=== PATIENT | male | born 1960 | race Caucasian/White ===

== ENCOUNTER 2019-12-11 11:10 | Emergency (ER) | payer OTHER ==
[~2019-12-11] VITALS: Ht 170.2 cm; Wt 78.7 kg
[~2019-12-11 11:10] MED LIST: AMLO-315 PO; ASPI-515 PO; ASPI81TA45 PO; ESOM20CA PO; GABA-826 PO; HYDROCHLOROTH12.5 MG PO; OMEP10CA5 PO
[2019-12-11 11:16] VITALS: BP 146/83
[2019-12-11] MEDS ORDERED: LIDOCAINE-MPF 1%, 5ML ONE (11:22)
[2019-12-11] MEDS ORDERED: LIDOCAINE-MPF 1%, 5ML INFIL ONE (11:30)
[2019-12-11] MEDS ORDERED: NEOSPORIN OINT. PKT 1 PACKET ONE (11:52)
[2019-12-11] MEDS ORDERED: DIPH,PERTUSS(ACELL),TET VAC/PF 0.5 ML IM-VACC ONE ×2 (11:59→12:30)
[2019-12-11] MEDS ORDERED: DIPH,PERTUSS(ACELL),TET VAC/PF NC IM-VACC ONE (12:30)
== END 2019-12-11 12:27 | disposition home or self-care (01) ==
LOC: ED 12:00
DX: S61.212A Laceration without foreign body of right middle finger without damage to nail, initial encounter (principal); W19.XXXA Unspecified fall, initial encounter; Y93.89 Activity, other specified; Y92.098 Other place in other non-institutional residence as the place of occurrence of the external cause; Y99.8 Other external cause status
CPT/HCPCS: 12041; 90471; 90715; 99284